=== PATIENT | male | born 1990 | race Caucasian/White ===

== ENCOUNTER 2017-12-24 19:39 | Emergency (ER) | payer SELFPAY ==
[~2017-12-24] VITALS: Ht 185.4 cm; Wt 80.1 kg
[2017-12-24 19:41] VITALS: BP 134/84
[2017-12-24] MEDS ORDERED: FLUORESCEIN OPHTHALMIC 1 MG STRIP ONE (19:49)
[2017-12-24] MEDS ORDERED: PROPARACAINE OPHTH 0.5%, 15ML ONE (19:49)
[2017-12-24] MEDS ORDERED: FLUORESCEIN OPHTHALMIC 1 MG STRIP EACHEYE ONE (20:00)
[2017-12-24] MEDS ORDERED: PROPARACAINE OPHTH 0.5%, 15ML EACHEYE ONE (20:00)
[2017-12-24] MEDS ORDERED: ERYTHROMYCIN OPHTH 0.5%, 1GM OP ONE (20:30)
== END 2017-12-24 21:14 | disposition home or self-care (01) ==
LOC: ED 21:10
DX: S05.01XA Injury of conjunctiva and corneal abrasion without foreign body, right eye, initial encounter (principal); Z72.89 Other problems related to lifestyle; Z60.9 Problem related to social environment, unspecified; W21.89XA Striking against or struck by other sports equipment, initial encounter; Y93.59 Activity, other involving other sports and athletics played individually; Y92.89 Other specified places as the place of occurrence of the external cause; Y99.8 Other external cause status
CPT/HCPCS: 99283

== ENCOUNTER 2018-07-22 13:29 | Emergency (ER) | payer SELFPAY ==
[~2018-07-22] VITALS: Ht 182.9 cm; Wt 85.0 kg
[2018-07-22 22:03] VITALS: BP 114/60
== END 2018-07-22 23:10 | disposition home or self-care (01) ==
LOC: ED 21:04
DX: F10.120 Alcohol abuse with intoxication, uncomplicated (principal)
CPT/HCPCS: 99283